=== PATIENT | male | born 1945 | race Caucasian/White ===

== ENCOUNTER → 2019-02-14 | Outpatient (CLI) | payer MEDICARE, OTHER ==
[~2019-02-14] MED LIST: ASPI325EC PO; DUTA.5 PO; Desyrel50 MG; EZET10; GABA100; GABA300 PO; GUAI100SY; METO5A; SIMV10 PO
== END | disposition home or self-care (01) ==
LOC: LAB SHORT 13:43 → PLD 13:43
DX: D04.61 Carcinoma in situ of skin of right upper limb, including shoulder (principal)
CPT/HCPCS: 88305

== ENCOUNTER → 2021-01-27 | Outpatient (CLI) | payer MEDICARE, OTHER | END | disposition home or self-care (01) | LOC: LAB SHORT 11:40 → LAB 11:40 | DX: D04.61 Carcinoma in situ of skin of right upper limb, including shoulder (principal) | CPT/HCPCS: 88305 ==

== ENCOUNTER → 2021-03-12 | Outpatient (CLI) | payer MEDICARE, OTHER | END | disposition home or self-care (01) | LOC: LAB SHORT 12:23 → LAB 12:23 | DX: L81.4 Other melanin hyperpigmentation (principal) | CPT/HCPCS: 88305 ==

== ENCOUNTER 2021-07-03 07:29 | Day surgery (SDC) | payer MEDICARE, OTHER ==
--- NOTE | 2021-07-03 08:29 | NUR ---
LOOP RECORDER IMPLANT PERFORMED BY DR FLORES WITH LOCAL ANESTHETIC. PT DENIED ANY DISCOMFORT DURING PROCEDURE.
--- NOTE | 2021-07-03 09:30 | NUR ---
PT AND SPOUSE VERBALIZED UNDERSTANDING OF DISCHARGE INSTRUCTIONS AND FOLLOW UP INFO. WILL RETURN TO CLINIC NEXT WEDNESDAY FOR WOUND CHECK APPOINTMENT. OUT TO CAR VIA WHEELCHAIR. LEFT CHEST LOOP RECORDER SITE CLEAN AND DRY. PT DENIES DISCOMFORT AT TIME OF DISCHARGE.
== END 2021-07-03 23:34 | disposition home or self-care (01) ==
LOC: MHTC 07:29
DX: R55 Syncope and collapse (principal)
CPT/HCPCS: 33285

== ENCOUNTER → 2022-03-30 | Outpatient (CLI) | payer MEDICARE, OTHER | END | disposition home or self-care (01) | LOC: LAB SHORT 07:44 → PLD 07:44 | DX: L73.9 Follicular disorder, unspecified (principal) | CPT/HCPCS: 88305; 88312 ==

== ENCOUNTER 2023-05-28 09:06 | Observation (INO) | payer MEDICARE, OTHER ==
[2023-05-28] MEDS ORDERED: BREZTRI AEROS10.7 GM INH (10:00)
[2023-05-28] MEDS ORDERED: ORGOVYX120 MG PO (10:00)
[2023-05-28] MEDS ORDERED: TRAZ100 PO (10:01)
[2023-05-28] MEDS ORDERED: NEURONTIN300 MG PO (10:01)
[2023-05-28] MEDS ORDERED: PRAV20 PO (10:01)
[2023-05-28] MEDS ORDERED: Ventolin/Prove6.7 GM INH (10:06)
[2023-05-28] MEDS ORDERED: LOSARTAN POTASS25 M2 PO (10:06)
[2023-05-28] MEDS ORDERED: THERA-D2000 UNIT PO (10:07)
[2023-05-28] MEDS ORDERED: Vitamin B-Comp1 EACH PO (10:08)
[2023-05-28] MEDS ORDERED: KRILL OIL 1,001 EACH PO (10:08)
[2023-05-28] MEDS ORDERED: PROBIOTIC1 EA14 PO (10:10)
[2023-05-28] MEDS ORDERED: TURMERIC500 M2 PO (10:10)
[2023-05-28] MEDS ORDERED: PSYLLIUM PO (10:11)
[2023-05-28] MEDS ORDERED: ASPI325 PO (10:12)
[2023-05-28] MEDS ORDERED: MAGNESIUM OXID500 MG PO (10:12)
[2023-05-28] MEDS ORDERED: MECL25 PO (10:14)
[2023-05-28] MEDS ORDERED: DIAZ5 PO (10:14)
[2023-05-28 10:15] LABS: BASOPHILS ABSOLUTE AUTO 0.01 K/mm3 (0.00-0.23); BASOPHILS PERCENT AUTO 0 % (0-2); EOSINOPHILS ABSOLUTE AUTO 0.01 K/mm3 (0.00-0.68); EOSINOPHILS PERCENT AUTO 0 % (0-6); Hemoglobin 11.4 g/dL (13.5-17.5); IMMATURE GRAN ABSOLUTE AUTO 0.05 K/mm3 (0.00-0.10); IMMATURE GRAN PERCENT AUTO 1 % (0-1); LYMPHOCYTES ABSOLUTE AUTO 0.27 K/mm3 (0.84-5.20); LYMPHOCYTES PERCENT AUTO 3 % (21-46); MONOCYTES ABSOLUTE AUTO 0.56 K/mm3 (0.16-1.47); MONOCYTES PERCENT AUTO 7 % (4-13); Mean Corpuscular HGB 30.7 pg (26.0-34.0); Mean Corpuscular HGB Conc 32.6 g/dL (31.5-36.5); Mean Corpuscular Volume 94 fL (80-100); Mean Platelet Volume 10.3 fL (9.1-12.4); NEUTROPHILS ABSOLUTE AUTO 7.77 K/mm3 (1.96-9.15); NEUTROPHILS PERCENT AUTO 90 % (41-73); Platelet Count 160 K/mm3 (150-400); RDW Standard Deviation 41.7 fL (35.1-46.3); Red Blood Cell Count 3.71 M/mm3 (4.30-5.90); White Blood Cell Count 8.67 K/mm3 (4.00-11.30)
[2023-05-28] MEDS ORDERED: Cyclobenzaprine10 MG PO (10:15)
[2023-05-28 10:32] LABS: Albumin, Blood 3.5 g/dL (3.4-5.0); Albumin/Globulin Ratio 1.1 (0.8-1.8); Bilirubin, Total 0.4 mg/dL (0.1-1.0); Bun/Creatinine Ratio 25.8 (12.0-20.0); Calcium, Blood 8.9 mg/dL (8.5-10.1); Creatinine, Blood 0.74 mg/dL (0.60-1.20); Globulin, Blood 3.2 g/dL (2.2-4.0); Potassium, Blood 3.6 mmol/L (3.5-5.5); Total Protein, Blood 6.7 g/dL (6.4-8.2)
[2023-05-28 10:54] LABS: Influenza A, PCR NEGATIVE (NEGATIVE); Influenza B, PCR NEGATIVE (NEGATIVE); Resp Syncytial Virus, PCR NEGATIVE (NEGATIVE); SARS-Cov-2 (COVID-19) PCR, MMC NEGATIVE (NEGATIVE)
[2023-05-28 16:37] VITALS: BP 137/73
--- NOTE | 2023-05-28 18:02 | NUR ---
PT RECEIVED TO ROOM 1620. PLEASANT A/O X3 TALKATIVE, CAPITAN GRANDE. SKIN CLEAR,. DENIES PAIN AT THIS TIME. H/R REG, NO MURMUR NOTED. NO TELE. LUNGS CLEAR ON RT. LEFT UPPER CLEAR, LOWER LEFT LOBE COARSE WITH LITE CRACKLES. ON R.A. RESP EASY, UNLBORED. TALKING MUCH WITH IN ROOM. NO EDEMA NOTED. PT SBA TO IND TO BATHROOM. BED IN LOW POSITION, CALL LITE IN REACH,CALLS APPROP
[2023-05-28 19:14] VITALS: BP 133/69
[2023-05-29 02:42] VITALS: BP 124/71
[2023-05-29 05:23] LABS: BASOPHILS ABSOLUTE AUTO 0.02 K/mm3 (0.00-0.23); BASOPHILS PERCENT AUTO 0 % (0-2); EOSINOPHILS ABSOLUTE AUTO 0.21 K/mm3 (0.00-0.68); EOSINOPHILS PERCENT AUTO 3 % (0-6); Hematocrit 32.4 % (37.0-53.0); Hemoglobin 10.7 g/dL (13.5-17.5); IMMATURE GRAN ABSOLUTE AUTO 0.02 K/mm3 (0.00-0.10); IMMATURE GRAN PERCENT AUTO 0 % (0-1); LYMPHOCYTES ABSOLUTE AUTO 0.91 K/mm3 (0.84-5.20); LYMPHOCYTES PERCENT AUTO 13 % (21-46); MONOCYTES ABSOLUTE AUTO 0.41 K/mm3 (0.16-1.47); MONOCYTES PERCENT AUTO 6 % (4-13); Mean Corpuscular HGB 31.3 pg (26.0-34.0); Mean Corpuscular Volume 95 fL (80-100); Mean Platelet Volume 9.9 fL (9.1-12.4); NEUTROPHILS ABSOLUTE AUTO 5.21 K/mm3 (1.96-9.15); NEUTROPHILS PERCENT AUTO 77 % (41-73); Platelet Count 147 K/mm3 (150-400); RDW Coefficient Variation 12.1 % (11.7-14.2); RDW Standard Deviation 42.2 fL (35.1-46.3); Red Blood Cell Count 3.42 M/mm3 (4.30-5.90); White Blood Cell Count 6.78 K/mm3 (4.00-11.30)
[2023-05-29 05:49] LABS: Calcium, Blood 9.1 mg/dL (8.5-10.1); Creatinine, Blood 0.85 mg/dL (0.60-1.20); Potassium, Blood 3.9 mmol/L (3.5-5.5)
--- NOTE | 2023-05-29 06:30 | NUR ---
PATIENT IS ALERT AND ORIENTED. WITH PIV LINE ON LEFT WRIST PATENT AND INTACT. HOOKED CPAP LAST NIGHT. NO COMPLAINTS MADE. NEEDS ATTENDED. HE HAS HEARING AID BUT LEFT AT HOME. CALL LIGHT WITHIN PATIENT'S REACH. WILL CONTINUE TO MONITOR.
[2023-05-29 07:42] VITALS: BP 119/75
[2023-05-29] MEDS ORDERED: Vitamin D1000 UNI1 PO (11:42)
[2023-05-29] MEDS ORDERED: CEFP200 PO (11:43)
[2023-05-29] MEDS ORDERED: AZIT250 PO (11:43)
[2023-05-29] MEDS ORDERED: GABA300 PO (11:51)
--- NOTE | 2023-05-29 13:32 | NUR ---
PATIENT DISCHARGED TO HOME ACCOMPANIED BY HIS . IV SALINE LOCK REMOVED WITHOUT INCIDENT. PATIENT AND VERBALIZED UNDERSTANDING OF D/C INSTRUCTIONS. HOME MEDICATION RETURNED TO PATIENT. OFF UNIT VIA W/C AT 1300. NO PERSONAL BELONGINGS LEFT BEHIND IN ROOM.
== END 2023-05-29 13:11 | disposition home or self-care (01) ==
LOC: ER 09:06 → MEDS 09:07 → ENPENDDIS 05-29 10:59 → MEDS 05-29 13:11
PROVIDERS: Emergency Medicine; Student in an Organized Health Care Education/Training Program; ADMIT Internal Medicine
DX: J18.9 Pneumonia, unspecified organism (principal); C61 Malignant neoplasm of prostate; D64.9 Anemia, unspecified; I10 Essential (primary) hypertension; E78.5 Hyperlipidemia, unspecified; G47.00 Insomnia, unspecified; G47.33 Obstructive sleep apnea (adult) (pediatric); Z20.822 Contact with and (suspected) exposure to COVID-19; Z88.5 Allergy status to narcotic agent; Z88.8 Allergy status to other drugs, medicaments and biological substances
CPT/HCPCS: 0241U; 36415; 71045; 71250; 80048; 80053; 85025; 93005; 93010; 94660; 94762; 96365; 96367; 96372; 96374; 96375; 96376; 99285-25; A9270; G0378; J0456; J0696; J1650; J7050

== ENCOUNTER 2023-10-26 07:52 | Observation (INO) | payer MEDICARE, OTHER ==
[~2023-10-26] VITALS: Ht 177.8 cm; Wt 97.2 kg
[~2023-10-26 07:52] MED LIST changes: +ASPI325 PO; +AZIT250 PO; +BREZTRI AEROS10.7 GM INH; +CEFP200 PO; +Cyclobenzaprine10 MG PO; +DIAZ5 PO; +KRILL OIL 1,001 EACH PO; +LOSARTAN POTASS25 M2 PO; +MAGNESIUM OXID500 MG PO; +MECL25 PO; +NEURONTIN300 MG PO; +ORGOVYX120 MG PO; +PRAV20 PO; +PROBIOTIC1 EA14 PO; +PSYLLIUM PO; +THERA-D2000 UNIT PO; +TRAZ100 PO; +TURMERIC500 M2 PO; +Ventolin/Prove6.7 GM INH; +Vitamin B-Comp1 EACH PO
[2023-10-26] MEDS ORDERED: Acetaminophen 500 MG Tab PO ONE (08:20)
[2023-10-26 08:24] LABS: BASOPHILS ABSOLUTE AUTO 0.01 K/mm3 (0.00-0.23); BASOPHILS PERCENT AUTO 0 % (0-2); EOSINOPHILS ABSOLUTE AUTO 0.05 K/mm3 (0.00-0.68); EOSINOPHILS PERCENT AUTO 1 % (0-6); Hematocrit 35.1 % (37.0-53.0); Hemoglobin 11.6 g/dL (13.5-17.5); IMMATURE GRAN ABSOLUTE AUTO 0.03 K/mm3 (0.00-0.10); IMMATURE GRAN PERCENT AUTO 0 % (0-1); LYMPHOCYTES ABSOLUTE AUTO 0.29 K/mm3 (0.84-5.20); LYMPHOCYTES PERCENT AUTO 3 % (21-46); MONOCYTES ABSOLUTE AUTO 0.49 K/mm3 (0.16-1.47); MONOCYTES PERCENT AUTO 5 % (4-13); Mean Corpuscular HGB 30.1 pg (26.0-34.0); Mean Corpuscular Volume 91 fL (80-100); Mean Platelet Volume 9.4 fL (9.1-12.4); NEUTROPHILS ABSOLUTE AUTO 8.53 K/mm3 (1.96-9.15); NEUTROPHILS PERCENT AUTO 91 % (41-73); Platelet Count 163 K/mm3 (150-400); RDW Coefficient Variation 13.1 % (11.7-14.2); RDW Standard Deviation 43.4 fL (35.1-46.3); Red Blood Cell Count 3.86 M/mm3 (4.30-5.90)
[2023-10-26] MEDS ORDERED: Ibuprofen 600 MG Tab PO ONE (08:25)
[2023-10-26 08:44] LABS: BAND PERCENT MAN 1 % (0-8); BASOPHILS PERCENT MAN 0 % (0-2); EOSINOPHILS PERCENT MAN 0 % (0-6); LYMPHOCYTES ABSOLUTE MAN 0.18 K/mm3 (0.84-5.20); LYMPHOCYTES PERCENT MAN 2 % (21-46); MONOCYTES ABSOLUTE MAN 0.37 K/mm3 (0.16-1.47); MONOCYTES PERCENT MAN 4 % (4-13); NEUTROPHILS ABSOLUTE MAN 8.83 K/mm3 (1.96-9.15); SEG NEUTROPHILS PERCENT MAN 93 % (41-73); TOTAL CELLS COUNTED 100
[2023-10-26 09:11] LABS: Magnesium, Blood 1.8 mg/dL (1.6-2.4)
[2023-10-26 09:20] LABS: Albumin, Blood 3.6 g/dL (3.4-5.0); Albumin/Globulin Ratio 1.1 (0.8-1.8); Bilirubin, Total 0.5 mg/dL (0.1-1.0); Bun/Creatinine Ratio 29.9 (12.0-20.0); Creatinine, Blood 0.74 mg/dL (0.60-1.20); Globulin, Blood 3.3 g/dL (2.2-4.0); Total Protein, Blood 6.9 g/dL (6.4-8.2)
[2023-10-26 09:55] LABS: Influenza A, PCR NEGATIVE (NEGATIVE); Influenza B, PCR NEGATIVE (NEGATIVE); Resp Syncytial Virus, PCR NEGATIVE (NEGATIVE); SARS-Cov-2 (COVID-19) PCR, MMC NEGATIVE (NEGATIVE)
[2023-10-26] MEDS ORDERED: Azithromycin 500 MG in NS 250 ML IV ONE (09:55)
[2023-10-26 10:23] LABS: Source, Urine Clean Catch
[2023-10-26 10:28] LABS: Appearance, Urine Clear (Clear); Bilirubin, Urine Neg (Neg); Blood, Urine Neg (Neg); Color, Urine Yellow (P-Yellow); Glucose Qualitative, Urine Neg (Neg); Ketones, Urine 1+ (Neg); Leukocyte Esterase, Urine Neg (Neg); Nitrite, Urine Neg (Neg); Protein, Urine Neg (Neg); Urobilinogen, Urine NORM (Normal)
[2023-10-26] MEDS ORDERED: MAGNESIUM OXID500 MG PO (10:44)
[2023-10-26] MEDS ORDERED: CALCIUM CARBON500 M1 PO (10:44)
[2023-10-26] MEDS ORDERED: Lactated Ringer's 1,000 ML IV SCH ×2 (11:20→13:30)
[2023-10-26] MEDS ORDERED: Acetaminophen 325 MG TABLET PO PRN (12:05)
--- NOTE | 2023-10-26 13:28 | NUR ---
1320- RECEIVED REPORT FROM YAN MAY, ER NURSE.
[2023-10-26 13:46] VITALS: BP 114/63
[2023-10-26 14:51] VITALS: BP 106/60
--- NOTE | 2023-10-26 14:53 | NUR ---
CRITICAL-CALLED TO GUY THIS RN LEFT VOICEMAIL NOTIFYING MD OF PT'S CRITICAL OF 3.1 LACTIC.
[2023-10-26] MEDS ORDERED: PROBIOTIC1 EA13 PO (15:15)
--- NOTE | 2023-10-26 15:35 | NUR ---
1530- MD TOVAR CALLED BACK AND THIS RN REPORTED THE CRITICAL LACTIC OF 3.1.
--- NOTE | 2023-10-26 17:24 | NUR ---
1340-TRANSFER TO MEDICAL FLOOR IN STABLE CONDITION. PT ON RA.
--- NOTE | 2023-10-26 18:18 | NUR ---
SUMMARY- PT AAOX4. X1 SBA IN ROOM. NO ACUTE EVENTS. NO COMPLAINTS OF PAIN. PT HAS GOOD APPETITE. PT ON RA ALL SHIFT SINCE ADMISSION.
[2023-10-26 19:35] VITALS: BP 136/64
[2023-10-26] MEDS ORDERED: TraZODone HCl 100 MG Tab PO SCH (21:00)
[2023-10-26] MEDS ORDERED: Gabapentin 300 MG Cap PO SCH (21:00)
[2023-10-26] MEDS ORDERED: Lactobacil 2-S.Thermo-Bifido 1 1 Cap PO SCH (21:00)
[2023-10-27 03:53] VITALS: BP 152/76
[2023-10-27 05:27] LABS: BASOPHILS ABSOLUTE AUTO 0.02 K/mm3 (0.00-0.23); BASOPHILS PERCENT AUTO 0 % (0-2); EOSINOPHILS ABSOLUTE AUTO 0.27 K/mm3 (0.00-0.68); EOSINOPHILS PERCENT AUTO 3 % (0-6); Hematocrit 32.1 % (37.0-53.0); IMMATURE GRAN ABSOLUTE AUTO 0.02 K/mm3 (0.00-0.10); IMMATURE GRAN PERCENT AUTO 0 % (0-1); LYMPHOCYTES ABSOLUTE AUTO 0.74 K/mm3 (0.84-5.20); LYMPHOCYTES PERCENT AUTO 9 % (21-46); MONOCYTES ABSOLUTE AUTO 0.48 K/mm3 (0.16-1.47); MONOCYTES PERCENT AUTO 6 % (4-13); Mean Corpuscular HGB 29.4 pg (26.0-34.0); Mean Corpuscular HGB Conc 31.2 g/dL (31.5-36.5); Mean Corpuscular Volume 94 fL (80-100); NEUTROPHILS ABSOLUTE AUTO 6.53 K/mm3 (1.96-9.15); NEUTROPHILS PERCENT AUTO 81 % (41-73); Platelet Count 136 K/mm3 (150-400); RDW Coefficient Variation 13.3 % (11.7-14.2); RDW Standard Deviation 45.8 fL (35.1-46.3); White Blood Cell Count 8.06 K/mm3 (4.00-11.30)
--- NOTE | 2023-10-27 05:41 | NUR ---
SHIFT SUMMARY PT A&OX4 AND ANSWERS QUESTIONS APPROPRIATELY. PT RECEIVED HS MEDICATIONS AND HOME MEDICATIONS ORDERED. PT ON CPAP DURING NOC. PT HAS URGENCY INCONTINENCE RELATED TO THE URINAL BEING MISPLACED. VSS, NO COMPLAINTS OF CP/PRESSURE OR SOB. NO ACUTE EVENTS AT THIS TIME. PT SPENT MOST OF SHIFT RESTING IN BED WITH EYES CLOSED AND RESPIRATIONS EVEN AND UNLABORED. LR RUNNING AT 100ML/HR. PROPER FALL PRECAUTIONS IN PLACE AND CALL LIGHT IN REACH.
[2023-10-27 06:16] LABS: Albumin, Blood 3.2 g/dL (3.4-5.0); Albumin/Globulin Ratio 1.1 (0.8-1.8); Bilirubin, Total 0.3 mg/dL (0.1-1.0); Bun/Creatinine Ratio 27.8 (12.0-20.0); Calcium, Blood 8.8 mg/dL (8.5-10.1); Creatinine, Blood 0.68 mg/dL (0.60-1.20); Potassium, Blood 4.1 mmol/L (3.5-5.5); Total Protein, Blood 6.2 g/dL (6.4-8.2)
[2023-10-27 07:33] VITALS: BP 149/77
[2023-10-27] MEDS ORDERED: CefTRIAXone Sodium 1,000 MG in NS 100 ML IV SCH (09:00)
[2023-10-27] MEDS ORDERED: Enoxaparin 40 MG/0.4 ML SYR SC SCH (09:00)
[2023-10-27] MEDS ORDERED: Azithromycin 500 MG in NS 250 ML IV SCH (10:00)
[2023-10-27] MEDS ORDERED: CEFD300 PO (11:21)
[2023-10-27] MEDS ORDERED: VISBIOME 112.51 EACH PO (11:22)
[2023-10-27] MEDS ORDERED: AZIT500 PO (11:22)
--- NOTE | 2023-10-27 15:51 | NUR ---
PT AWAKE DURING SHIFT REPORT. A&O, PLEASANT AND CO-OP. CALLED FOR SBA TO [facility] NEEDED. USED URINAL AT BS WELL. UP WALKING HALLS WITH THERAPY TODAY. NO ASSISTANCE NEEDED. D/C ORDERS PLACED. MEDS FAXED PER PT REQUEST. PT'S TO RM TO TAKE PT HOME. D/C INSTRUCTIONS REVIEWED WITH PT AND ; VERBALIZED UNDERSTANDING. PT ASSISTED OUT TO 'S CAR VIA W/C WITH ALL BELONGINGS.
== END 2023-10-27 13:40 | disposition home or self-care (01) ==
LOC: ER 07:52 → MEDS 07:53 → ENPENDDIS 10-27 11:56 → MEDS 10-27 13:40
PROVIDERS: Physician Assistant; Student in an Organized Health Care Education/Training Program; ADMIT Internal Medicine
DX: A41.9 Sepsis, unspecified organism (principal); R65.20 Severe sepsis without septic shock; J18.9 Pneumonia, unspecified organism; I10 Essential (primary) hypertension; I95.9 Hypotension, unspecified; G47.33 Obstructive sleep apnea (adult) (pediatric); Z88.5 Allergy status to narcotic agent; Z88.8 Allergy status to other drugs, medicaments and biological substances; E78.5 Hyperlipidemia, unspecified; C61 Malignant neoplasm of prostate; Z72.0 Tobacco use
CPT/HCPCS: 0241U; 36415; 71046; 80053; 81003; 83605; 83735; 84100; 85025; 87040; 87449; 93005; 93010; 94762; 96361; 96365; 96366; 96367; 96372; 97161; 99285-25; A9270; G0378; J0456; J0696; J1650; J7050; J7120

== ENCOUNTER 2023-11-21 12:38 | Emergency (ER) | payer OTHER, MEDICARE ==
[~2023-11-21] VITALS: Ht 177.8 cm; Wt 97.5 kg
[~2023-11-21 12:38] MED LIST changes: +AZIT500 PO; +CALCIUM CARBON500 M1 PO; +CEFD300 PO; +PROBIOTIC1 EA13 PO; +VISBIOME 112.51 EACH PO
[2023-11-21 13:03] LABS: BASOPHILS ABSOLUTE AUTO 0.01 K/mm3 (0.00-0.23); BASOPHILS PERCENT AUTO 0 % (0-2); EOSINOPHILS PERCENT AUTO 4 % (0-6); Hemoglobin 11.2 g/dL (13.5-17.5); IMMATURE GRAN ABSOLUTE AUTO 0.01 K/mm3 (0.00-0.10); IMMATURE GRAN PERCENT AUTO 0 % (0-1); LYMPHOCYTES ABSOLUTE AUTO 1.03 K/mm3 (0.84-5.20); LYMPHOCYTES PERCENT AUTO 21 % (21-46); MONOCYTES ABSOLUTE AUTO 0.38 K/mm3 (0.16-1.47); MONOCYTES PERCENT AUTO 8 % (4-13); Mean Corpuscular HGB 29.9 pg (26.0-34.0); Mean Corpuscular HGB Conc 32.9 g/dL (31.5-36.5); Mean Corpuscular Volume 91 fL (80-100); Mean Platelet Volume 9.9 fL (9.1-12.4); NEUTROPHILS ABSOLUTE AUTO 3.29 K/mm3 (1.96-9.15); NEUTROPHILS PERCENT AUTO 67 % (41-73); Platelet Count 176 K/mm3 (150-400); RDW Coefficient Variation 12.8 % (11.7-14.2); Red Blood Cell Count 3.74 M/mm3 (4.30-5.90); White Blood Cell Count 4.92 K/mm3 (4.00-11.30)
[2023-11-21 13:15] LABS: Albumin, Blood 3.7 g/dL (3.4-5.0); Albumin/Globulin Ratio 1.2 (0.8-1.8); Bilirubin, Total 0.2 mg/dL (0.1-1.0); Bun/Creatinine Ratio 32.7 (12.0-20.0); Calcium, Blood 9.1 mg/dL (8.5-10.1); Creatinine, Blood 0.83 mg/dL (0.60-1.20); Globulin, Blood 3.1 g/dL (2.2-4.0); Potassium, Blood 3.8 mmol/L (3.5-5.5); Total Protein, Blood 6.8 g/dL (6.4-8.2)
[2023-11-21] MEDS ORDERED: NS 1,000 ML IV SCH (13:30)
[2023-11-21 15:00] VITALS: BP 167/72
== END 2023-11-21 15:36 | disposition home or self-care (01) ==
LOC: ER 12:38
PROVIDERS: Student in an Organized Health Care Education/Training Program
DX: S00.01XA Abrasion of scalp, initial encounter (principal); E86.0 Dehydration; G47.30 Sleep apnea, unspecified; E78.5 Hyperlipidemia, unspecified; I10 Essential (primary) hypertension; G47.33 Obstructive sleep apnea (adult) (pediatric); W01.0XXA Fall on same level from slipping, tripping and stumbling without subsequent striking against object, initial encounter; Z79.899 Other long term (current) drug therapy; Z79.82 Long term (current) use of aspirin; Z88.5 Allergy status to narcotic agent; Z88.8 Allergy status to other drugs, medicaments and biological substances
CPT/HCPCS: 70450; 72125; 80053; 83735; 84484; 85025; 93005; 93010; 96360; 99284-25; J7030

== ENCOUNTER 2024-01-12 06:14 | Day surgery (SDC) | payer MEDICARE, OTHER ==
[2024-01-12] VITALS (12 sets, daily range): BP systolic 96–1231; BP diastolic 65–83
[~2024-01-12] VITALS: Ht 175.3 cm; Wt 100.6 kg
[~2024-01-12 06:14] MED LIST changes: +ACET500 PO; +FORMOTEROL20 MCG/2 M INH; +HYDMOR2 PO; +LOSA25 PO; +VITAMIN D310 MC4 PO
[2024-01-12] MEDS ORDERED: Acetaminophen 500 MG Tab PO SCH (06:15)
[2024-01-12] MEDS ORDERED: Lactated Ringer's 1,000 ML IV SCH (06:15)
[2024-01-12] MEDS ORDERED: Morphine Sulfate 15 MG TABCR PO SCH (06:15)
[2024-01-12] MEDS ORDERED: Chlorhexidine Mouth Care 15 ML UDC MT SCH (06:15)
[2024-01-12] MEDS ORDERED: Vancomycin HCL 1,000 MG in NS 250 ML IV SCH (06:15)
[2024-01-12] MEDS ORDERED: CefTRIAXone Sodium 2,000 MG in NS 100 ML IV ONE (06:20)
[2024-01-12] MEDS ORDERED: Tranexamic Acid 100 ML IV SCH (06:27)
[2024-01-12] MEDS ORDERED: propofoL 20 ML IV ONE (06:56)
[2024-01-12] MEDS ORDERED: FentaNYL Citrate 50 MCG/ML 2 ML Injection ONE ×3 (06:57→09:59)
[2024-01-12] MEDS ORDERED: Rocuronium Bromide 10 MG/ML 5ML Injection IV ONE (06:57)
[2024-01-12] MEDS ORDERED: SuccINYLCHOLINE Chloride 100 MG/5 ML 5MLSYR ONE (06:57)
[2024-01-12] MEDS ORDERED: Bupivacaine 0.5% HCl 5 MG/ML 30MLVIAL ONE (06:58)
--- NOTE | 2024-01-12 07:37 | NUR ---
Ambulatory in Day Surgery. Pre-Op teaching done. Pt verbalizes understanding. History, Chart, Medications and Allergies reviewed before start of procedure.Patient confirms NPO status and agrees with scheduled surgery. Patient States Post-Procedure ride home has been arranged.
--- NOTE | 2024-01-12 07:46 | NUR ---
TIME OUT PREFORMED W/ DR. SHARP FOR RIGHT INTERSCALENE BLOCK. 02 ON AT 2L/MIN VIA NC. CONT. PULSE MONITORING W/ SA02 = 94-97 % AFTER [address] MCG IVP [address] PER [address]. SHARP.
[2024-01-12] MEDS ORDERED: Glycopyrrolate 0.2 MG/ML 5ML VIAL ONE (08:17)
[2024-01-12] MEDS ORDERED: Dexamethasone Sod Phos 10 MG/ML 1ML VIAL ONE (08:18)
[2024-01-12] MEDS ORDERED: ePHEDrine Sulfate 50 MG/ML 1ML Injection ONE (08:27)
--- NOTE | 2024-01-12 09:03 | NUR ---
01/12/24 0903 Tracey,Merle LIDOCAINE WITH EPINEPHRINE 1:100,000 WAS POURED ONTO STERILE FIELD. ROCEPHIN 2,000MG WAS GIVEN BY AT 0816.
[2024-01-12] MEDS ORDERED: Ondansetron HCl 2 MG / ML 2ML Vial ONE (10:23)
--- NOTE | 2024-01-12 12:49 | NUR ---
DISCHARGE PT A&OX4, VSS/RA, ADILIA PO, DENIES PAIN/NAUSEA, DRESSED WITH ASSIST FROM AND RN, IV DC'D, DC INS PROVIDED, PT AND REP UNDERSTANDING DRESSING CHANGE ON WEDNESDAY/AQUACEL PROVIDED, EXERCISES - SHOULDER, TEDS, POLAR IMNDA, I.S. LEFT VIA WC WITH ALL PERSONAL BELONGINGS/POLAR MINDA, REP HAVING ALL MEDS FILLED AND AT HOME, TO GO HOME WITH , FAMILY AT HOME TO HELP THEM.
== END 2024-01-12 12:50 | disposition home or self-care (01) ==
LOC: ORSCMMR 06:14 → ORSCSDS 07:30 → ORSCMMR 07:30
PROVIDERS: Orthopaedic Surgery
PROC: 0RRJ00Z Replacement of Right Shoulder Joint with Reverse Ball and Socket Synthetic Substitute, Open Approach (ICD-10-PCS; principal; 2024-01-12 07:30)
DX: M19.011 Primary osteoarthritis, right shoulder (principal); I10 Essential (primary) hypertension; I25.10 Atherosclerotic heart disease of native coronary artery without angina pectoris; J44.9 Chronic obstructive pulmonary disease, unspecified; G47.33 Obstructive sleep apnea (adult) (pediatric); K21.9 Gastro-esophageal reflux disease without esophagitis; Z85.46 Personal history of malignant neoplasm of prostate; Z79.899 Other long term (current) drug therapy; E66.9 Obesity, unspecified; Z68.33 Body mass index [BMI] 33.0-33.9, adult; Z79.82 Long term (current) use of aspirin
CPT/HCPCS: 73030; A9270; C1713; C1776; J0330; J0696; J1100; J2405; J2704; J3010; J3370; J7050; J7120

== ENCOUNTER 2024-06-19 13:29 | Emergency (ER) | payer MEDICARE, OTHER ==
[~2024-06-19] VITALS: Ht 177.8 cm; Wt 98.9 kg
[2024-06-19 15:48] VITALS: BP 145/75
[2024-06-19 17:21] LABS: Influenza A, PCR NEGATIVE (NEGATIVE); Influenza B, PCR NEGATIVE (NEGATIVE); Resp Syncytial Virus, PCR NEGATIVE (NEGATIVE); SARS-Cov-2 (COVID-19) PCR, MMC NEGATIVE (NEGATIVE)
[2024-06-19] MEDS ORDERED: Amoxicillin 500 MG Cap PO ONE (18:45)
[2024-06-19] MEDS ORDERED: AMOX500 PO (18:45)
== END 2024-06-19 18:55 | disposition home or self-care (01) ==
LOC: ER 13:29
PROVIDERS: Student in an Organized Health Care Education/Training Program
DX: J02.0 Streptococcal pharyngitis (principal); I10 Essential (primary) hypertension; E78.5 Hyperlipidemia, unspecified; Z79.82 Long term (current) use of aspirin; Z79.899 Other long term (current) drug therapy; Z79.2 Long term (current) use of antibiotics; Z88.5 Allergy status to narcotic agent; Z88.8 Allergy status to other drugs, medicaments and biological substances
CPT/HCPCS: 0241U; 71046; 87430; 99283-25; A9270

== ENCOUNTER 2024-11-14 07:55 | Day surgery (SDC) | payer MEDICARE, OTHER ==
[~2024-11-14 07:55] MED LIST changes: +AMOX500 PO
[2024-11-14] MEDS ORDERED: Lidocaine 2%-Epineph 1:100000 20 ML MDV ONE (08:00)
[2024-11-14 08:10] VITALS: BP 132/73
[2024-11-14] MEDS ORDERED: Ventolin5 MG/1 ML INH (08:15)
[2024-11-14 08:16] VITALS: BP 132/73
[2024-11-14 08:55] VITALS: BP 145/80
[2024-11-14 09:00] VITALS: BP 132/84
--- NOTE | 2024-11-14 09:11 | NUR ---
PT GIVEN DC INSTRUCTIONS AND VERBALIZED UNDERSTANDING. PT CHANGED. PT AMBULATED TO CAR W/ . SITE SOFT AND NON-TENDER PER PT. NO BLEEDING NOTED.
== END 2024-11-14 09:15 | disposition home or self-care (01) ==
LOC: MHTC 07:55
DX: Z45.09 Encounter for adjustment and management of other cardiac device (principal); Z95.818 Presence of other cardiac implants and grafts; I11.9 Hypertensive heart disease without heart failure; I77.819 Aortic ectasia, unspecified site; E78.5 Hyperlipidemia, unspecified; K21.9 Gastro-esophageal reflux disease without esophagitis; J45.909 Unspecified asthma, uncomplicated; Z90.49 Acquired absence of other specified parts of digestive tract; Z79.82 Long term (current) use of aspirin; Z79.899 Other long term (current) drug therapy; Z88.5 Allergy status to narcotic agent; Z88.8 Allergy status to other drugs, medicaments and biological substances
CPT/HCPCS: 33286